=== PATIENT | female | born 1955 | race Caucasian/White ===

== ENCOUNTER → 2022-02-19 | Outpatient (CLI) | payer OTHER ==
[~2022-02-19] MED LIST: AVAPRO150 MG PO; DECADRON6 MG PO; LIPITOR TAB 2020 MG PO; OMEPRAZOLE40 MG PO; OMNICEF 300 MG300 MG PO; ORAZINC220 MG PO; SERTRALINE HCL50 MG PO; SYNTHROID 100100 MCG PO; VITAMIN C500 M4 PO; ZOFRAN4 MG PO
== END ==
LOC: KOH-I 11:18
DX: R06.02 Shortness of breath (principal); Z86.16 Personal history of COVID-19
CPT/HCPCS: 71250